=== PATIENT | female | born 1970 | race African-American/Black ===

== ENCOUNTER 2016-06-27 13:34 | Emergency (ER) | payer MEDICAID ==
[2016-06-27] MEDS ORDERED: HYDROCOD/APAP 7.5/325 IN 15ML UDCUP PO ONE (13:59)
[2016-06-27] MEDS ORDERED: DEXAMETHASONE 10 MG/ML VIAL PO ONE (13:59)
--- NOTE | 2016-06-27 14:00 | EDPHY ---
H & P Stated Complaint: st x 4 days Time Seen by Provider: 06/27/16 13:51 HPI/ROS: CHIEF COMPLAINT: Sore throat, sinus drainage HISTORY OF PRESENT ILLNESS: This is a 45-year-old female presenting to the emergency department complaining of sore throat and sinus pain with drainage which is now become green and yellow x5 days, intermittent cough x4 days patient states more likely due to the sinus drainage. Intermittent chills, patient states she has not taken anything [id number], now over the past 1- 2 days having body aches with intermittent headache from cough. REVIEW OF SYSTEMS: Constitutional: No fever. chills. Body aches fatigue Eyes: No discharge. ENT: sore throat. Sinus pain with drainage Cardiovascular: No chest pain, no palpitations. Respiratory: Intermittent nonproductive cough, no shortness of breath. Gastrointestinal: No abdominal pain, no vomiting. Genitourinary: No hematuria. Musculoskeletal: No back pain. Skin: No rashes. Neurological: Intermittent headache. Source: Patient - Personal History LMP (Females 10-55): Unknown Current Tetanus/Diphtheria Vaccine: Unsure - Medical/Surgical History Hx Asthma: No Hx Chronic Respiratory Disease: No Hx Diabetes: No Hx Cardiac Disease: No Hx Renal Disease: No Hx Cirrhosis: No Hx Alcoholism: No Hx HIV/AIDS: No Hx Splenectomy or Spleen Trauma: No Other PMH: denies - Social History Smoking Status: Current every day smoker - Physical Exam Exam: General Appearance: Alert, no distress. HEENT: Normocephalic atraumatic. Pupils equal round no pallor or injection. TMs bilateral non serous middle ear effusion no erythema. Mucous membranes moist. Nasal mucosa erythemic edema tender on exam. Maxillary sinuses tender on palpation. Tonsillar exudate, erythema and hypertrophy. Uvula midline Respiratory: There are no retractions, lungs are clear to auscultation. Cardiovascular: Regular rate and rhythm. Gastrointestinal: Abdomen is soft and nontender, no masses, bowel sounds normal. Neurological: No focal deficits Skin: Warm and dry, no rashes. Musculoskeletal: Neck is supple nontender. Cervical lymphadenopathy tender on palpation Extremities: symmetrical, full range of motion. Psychiatric: Patient is oriented X 3, there is no agitation. Constitutional: Initial Vital Signs Temperature (C) 36.6 C 06/27/16 13:38 Heart Rate 95 06/27/16 13:38 Respiratory Rate 18 06/27/16 13:38 Blood Pressure 111/79 06/27/16 13:38 O2 Sat (%) 97 06/27/16 13:38 O2 Delivery Mode Room Air Allergies/Adverse Reactions: No Known Allergies Allergy (Unverified 06/27/16 13:38) Home Medications: Medication Instructions Recorded Azithromycin [Zithromax] 250 mg PO DAILY #6 tab 06/27/16 Medical Decision Making ED Course/Re-evaluation: Discussed the plan of care: Rapid strep, Decadron, liquid Hycet ordered Discussed negative strep results, patient tolerating p.o. intake air, reports feeling a little bit better. Discharge home---> stable, discussed discharge instructions Differential Diagnosis: Other differential diagnosis considered but not limited to strep, otitis media and influenza - Data Points Laboratory Results: 06/27/16 06/27/16 Unknown 14:20 Group A Strep Screen NEGATIVE (NEGATIVE) Group A Strep DNA Pending Medications Given: Discontinued Medications Hydrocodone Bitart/Acetaminophen (Hycet Oral Liquid) 15 ml PO EDNOW ONE Stop: 06/27/16 14:00 Last Admin: 06/27/16 14:22 Dose: 15 ml Azithromycin (Zithromax) 500 mg PO EDNOW ONE PRN Reason: Protocol Stop: 06/27/16 15:23 Last Admin: 06/27/16 15:24 Dose: 500 mg Dexamethasone (Decadron Injection) 10 mg PO EDNOW ONE Stop: 06/27/16 14:00 Last Admin: 06/27/16 14:22 Dose: 10 mg Departure - Departure Disposition: Home, Routine, Self-Care Clinical Impression: Acute upper respiratory infection Acute pharyngitis Qualifiers: Pharyngitis/tonsillitis etiology: other specified organisms Qualified Code(s): J02.8 - Acute pharyngitis due to other specified organisms Condition: Good Instructions: Sinusitis (ED), Upper Respiratory Infection (ED) Additional Instructions: Discussed discharge instructions the patient 1. rest, increase fluid intake 2. Take medication as prescribed 3. Ibuprofen 600 mg every 6-8 hours, and/or Tylenol 500-1000mg every 6 hours 4. Gargle with warm salt water, hot tea lemon and honey 5. Flonase 1-2 sprays in each nostril, nasal washes Referrals: NONE *PRIMARY CARE P,. [Primary Care Provider] - As per Instructions [facility],. [Clinic] - As per Instructions Prescriptions: Azithromycin [Zithromax] 250 mg PO DAILY #6 tab
[2016-06-27] MEDS ORDERED: AZITHROMYCIN 250 MG TAB PO ONE (15:22)
[2016-06-27] MEDS ORDERED: IBUPROFEN 600 MG TAB PO ONE (15:38)
[2016-06-27 15:55] VITALS: BP 112/71; PULSE 71; RESP 16; TEMP 98.2; O2SAT 95
== END 2016-06-27 15:55 | disposition home or self-care (01) ==
DX: J06.9 Acute upper respiratory infection, unspecified (principal); F17.200 Nicotine dependence, unspecified, uncomplicated

== ENCOUNTER 2017-01-26 14:15 | Inpatient (IN) | payer MEDICAID ==
[2017-01-30] MEDS ORDERED: LR 1,000 ML IV ONE (10:34)
--- NOTE | 2017-01-30 11:52 | PDHPUP ---
History & Physical Update H&P update statement: This history and physical update is based on an assessment of the patient which was completed after admission or registration (within 24 hours), but prior to the surgery/procedure. H&P update: H&P reviewed & patient examined, no change in patient's condition since H&P completed
[2017-01-30] MEDS ORDERED: BUPIVACAINE/EPI 0.5% 30 ML SDV ONE (12:15)
[2017-01-30] MEDS ORDERED: MIDAZOLAM 2 MG/2 ML VIAL IVP ONE (13:38)
--- NOTE | 2017-01-30 13:38 | PDANEPAE ---
ANE History of Present Illness 46 yo for lap ventral hernia repair ANE Past Medical History - Cardiovascular History Hx Hypertension: No Hx Arrhythmias: No Hx Chest Pain: No Hx Coronary Artery / Peripheral Vascular Disease: No Hx CHF / Valvular Disease: No Hx Palpitations: No - Pulmonary History Hx COPD: No Hx Asthma/Reactive Airway Disease: No Hx Recent Upper Respiratory Infection: No Hx Oxygen in Use at Home: No Hx Sleep Apnea: No Sleep Apnea Screening Result - Last Documented: Negative - Neurologic History Hx Cerebrovascular Accident: No Hx Seizures: No Hx Dementia: No - Endocrine History Hx Diabetes: No - Renal History Hx Renal Disorders: No - Liver History Hx Hepatic Disorders: No - Neurological & Psychiatric Hx Hx Neurological and Psychiatric Disorders: No - Cancer History Hx Cancer: No - Congenital Disorder History Hx Congenital Disorders: No - GI History Hx Gastrointestinal Disorders: No - Other Health History Other Health History: JOSE FOOT NEUROPATHY - Chronic Pain History Chronic Pain: Yes (VENTRAL HERNIA) - Surgical History Prior Surgeries: REMVL LT BREAST CYST. DX LAP 2013 ANE Review of Systems Review of Systems: - Exercise capacity METS (RN): 4 METS ANE Patient History - Allergies Allergies/Adverse Reactions: hydrocodone [From Vicodin] Allergy (Verified 01/26/17 10:07) Itching - Home Medications Home medications: home medication list seen and reviewed Home Medications: Acetaminophen [Tylenol 325mg (*)] 325 mg PO DAILY PRN 01/26/17 [Last Taken 01/29] Gabapentin [Neurontin 300 MG (*)] 300 mg PO HS 01/26/17 [Last Taken Unknown] Gabapentin [Neurontin 300 MG (*)] 600 mg PO TID 01/26/17 [Last Taken 01/29/17] - NPO status NPO Since - Liquids (Date): 01/29/17 NPO Since - Liquids (Time): 21:30 NPO Since - Solids (Date): 01/30/17 NPO Since - Solids (Time): 08:30 - Anes Hx Anes Hx: no prior problems - Smoking Hx Smoking Status: Heavy smoker ANE Labs/Vital Signs - Vital Signs Blood Pressure: 127/83 Heart Rate: 80 Respiratory Rate: 16 O2 Sat (%): 97 Height: 5 ft 4 in Weight: 72.575 kg ANE Physical Exam - Airway Neck exam: FROM Mallampati Score: Class 2 - Pulmonary Pulmonary: no respiratory distress - Cardiovascular Cardiovascular: regular rate and rhythym - ASA Status ASA Status: II ANE Anesthesia Plan Anesthesia Plan: general endotracheal anesthesia
[2017-01-30] MEDS ORDERED: MIDAZOLAM 2 MG/2 ML VIAL ONE (13:40)
[2017-01-30] MEDS ORDERED: fentaNYL 100 MCG/2 ML INJ ONE ×3 (13:51→15:16)
[2017-01-30] MEDS ORDERED: PROPOFOL/EMULSION 500 MG/50 ML BOTTLE IV ONE (13:51)
[2017-01-30] MEDS ORDERED: KETOROLAC 30 MG/1 ML SDV ONE (14:14)
[2017-01-30] MEDS ORDERED: ROCURONIUM 50 MG/5 ML VIAL ONE (14:14)
[2017-01-30] MEDS ORDERED: ONDANSETRON 4 MG/2 ML VIAL ONE (14:14)
[2017-01-30] MEDS ORDERED: NALOXONE HCL 0.4 MG/ML INJ IVP PRN (14:54)
[2017-01-30] MEDS ORDERED: ONDANSETRON 4 MG/2 ML VIAL IVP PRN ×2 (14:54→16:27)
[2017-01-30] MEDS ORDERED: SUGAMMADEX SODIUM 200 MG/2 ML VIAL IVP ONE (14:54)
[2017-01-30] MEDS: fentaNYL 100 MCG/2 ML INJ IVP PRN ×2 (15:17→15:30)
--- NOTE | 2017-01-30 15:18 | POSTANESTH ---
Post Anesthetic Evaluation Cardiovascular Status: Normal, Stable Respiratory Status: Normal, Stable Level of Consciousness/Mental Status: Can Participate in Eval Pain Control: Adequate, Prn Tx Ordered Nausea/Vomiting Control: Adequate, Prn Tx Ordered Complications Possibly Related to Anesthesia: None Noted
[2017-01-30] MEDS ORDERED: HYDROmorphONE/DILAUDID 1 MG/ML INJ ONE (15:46)
[2017-01-30] MEDS: HYDROmorphONE/DILAUDID 1 MG/ML INJ IVP PRN ×2 (15:47→16:30)
--- NOTE | 2017-01-30 16:26 | POSTOPPROG ---
Post Op Note Date of Operation: 01/30/17 Surgeon: Jones Peterson Anesthesiologist: Fabiano Lorenzana Anesthesia: GET(General Endotracheal) Pre-op Diagnosis: Incarcerated Ventral Hernia Post-op Diagnosis: Same Procedure: Lap incarcercerated ventral hernia repair, rt flank excision Findings: incis umby and falciform ligament public safety officer incarc fat Inf/Abcess present in the surg proc area at time of surgery?: No EBL: Minimal Specimen(s): lipoma
[2017-01-30] MEDS ORDERED: HYDROCODONE/APAP 5/325 TAB PO PRN (16:27)
[2017-01-30] MEDS ORDERED: ZOLPIDEM TARTRATE 5 MG TAB PO PRN (16:27)
[2017-01-30] MEDS ORDERED: ACETAMINOPHEN 325 MG TAB PO PRN (16:28)
[2017-01-30] MEDS: KETOROLAC 15 MG/1 ML SDV IVP SCH ×2 (17:34→23:34)
[2017-01-30] MEDS: oxyCODONE IR 15 MG TAB PO PRN ×2 (17:34→21:39)
--- NOTE | 2017-01-30 17:52 | SOAPPROG ---
SOAP Progress Note Assessment/Plan: Assessment:postop check - doing well. pain controlled. no issues. ambulate. sw eval am. Plan: 01/30/17 17:51 Objective: Vital Signs Temp Pulse Resp BP Pulse Ox 36.3 C 82 20 131/84 H 98 01/30/17 17:06 01/30/17 17:06 01/30/17 17:06 01/30/17 17:06 01/30/17 17:06 01/29/17 01/30/17 01/31/17 05:59 05:59 05:59 Intake Total 1700 Output Total 20 Balance 1680 ICD10 Worksheet Patient Problems: Problems Problem Status Onset Ventral hernia Acute - ICD10 Problem Qualifiers (1) Ventral hernia
--- NOTE | 2017-01-30 18:25 | GOP ---
[f rep st] OPERATIVE REPORT DATE OF OPERATION: 01/30/2017 SURGEON: Jones Peterson MD ANESTHESIA: General. ANESTHESIOLOGIST: Ruby Lorenzana MD PREOPERATIVE DIAGNOSIS: 1. Incarcerated ventral hernia. 2. Right flank soft-tissue mass. POSTOPERATIVE DIAGNOSIS: 1. Incarcerated ventral hernia. 2. Right flank soft-tissue mass. PROCEDURE PERFORMED: 1. Laparoscopic repair of incarcerated incisional and ventral hernia with 10 inch x 15 inch Symbotex mesh. 2. Excision of right flank mass. FINDINGS: See below. INDICATIONS: 46-year-old female with a prior diagnostic laparoscopy. She presents with a painful, incarcerated umbilical hernia as well as incarcerated epigastric hernia. She is undergoing surgical repair at this time. She also desires excision of an enlarging, symptomatic right flank clinical lipoma. Risks and benefits were explained, including bleeding, infection, hernia recurrence, bowel injury, as well as mass, differential diagnosis and recurrence. All questions were entertained. She desires to proceed. DESCRIPTION OF PROCEDURE: General anesthesia was induced. The abdomen was pre injected with 0.5% Marcaine with epinephrine. A curvilinear supraumbilical incision was created. Umbilical stalk was intact. There was an incarcerated 1 cm defect just lateral to the umbilical stalk with omentum. The omentum was transected at its fascial expansion, allowing for the base to reduce back into the abdominal cavity. The sac was cleared back to healthy-appearing edges, and a 10 mm trocar was placed. Sitting approximately 5 cm proximal in right paramedian position was an area of falciform ligament perforation through the abdominal wall with a large portion of incarcerated subcutaneous fat. The fat was all reduced back into the abdominal cavity, disclosing a 1 cm English cheese defect. The remaining upper and lower midline appeared normal. The falciform ligament was taken down to the diaphragmatic hiatus. A 10 x 15 cm Symbotex mesh was inserted into the abdominal cavity. Using multiple absorbable tacks, both defects were covered from below. The trocars were removed under direct visualization. The umbilical defect was closed transversely with a running Vicryl suture. The wounds were closed with Monocryl suture followed by Steri- Strips. A transverse incision was created after local anesthetic infiltration in the right flank region. A 3 cm well-defined ovoid soft-tissue fatty mass was removed in its entirety and sent for permanent specimen processing. Satisfactory hemostasis was assured. The defect was closed with a running Monocryl suture, followed by Steri-Strips. The patient was taken to recovery room to awaken uneventfully. /[id number]/MODL MTDD
[2017-01-30] MEDS: GABAPENTIN 300 MG CAP PO SCH ×3 (21:40→21:43)
[2017-01-31] MEDS: oxyCODONE IR 15 MG TAB PO PRN ×3 (03:47→21:34)
[2017-01-31] MEDS: KETOROLAC 15 MG/1 ML SDV IVP SCH ×4 (05:38→23:40)
[2017-01-31] MEDS: GABAPENTIN 300 MG CAP PO SCH ×4 (07:39→21:33)
--- NOTE | 2017-01-31 09:41 | SOAPPROG ---
SOAP Progress Note Assessment/Plan: Assessment: no overnight issues. pain fair control. nausea improving. avss. up in chair. comfortable. abd dist. incis clean. approp tenderness. pod#1 s /p lap ventral hernia. not ready for discharge - needs better pain control and independence. ok to shower. ambulate. diet as able. anticipate dc tomorrow to senior care? abdelrahman evgreer today. reviewed with patient, cm, and nursing staff Plan: 01/30/17 17:51 01/31/17 09:39 Objective: Vital Signs Temp Pulse Resp BP Pulse Ox 36.6 C 81 12 107/69 92 01/31/17 07:42 01/31/17 07:42 01/31/17 07:42 01/31/17 07:42 01/31/17 07:42 01/30/17 01/31/17 02/01/17 05:59 05:59 05:59 Intake Total 2049 Output Total 2029 ICD10 Worksheet Patient Problems: Problems Problem Status Onset Ventral hernia Acute - ICD10 Problem Qualifiers (1) Ventral hernia
--- NOTE | 2017-01-31 13:26 | ASMTCASEMG ---
Living Arrangements What is your living Answers: Alone arrangement? Who do you live with? Type Of Residence What kind of residence do Answers: Homeless you live in? Discharge Plan Comments Coordination Status Comments Notes: Patient is a pleasant 46yo single female who was admitted for surgical repair of an umbilical hernia.Spoke with patient who was hoping she could get a bed with [facility] respite program. Contacted [facility] respite but they will not have any beds until February 03, 2017. Reserved the [facility] penitentiary bed for patient for tomorrow when she will be d/c'ed. Gave patient homeless packet for resources she can access. Patient is familiar with the penitentiary and has used their services in the past. Patient will most likely be ready for d/c tomorrow, 02/01/17. Date Signed: 01/31/2017 01:26 PM Electronically Signed By:Hannah Ren LCSW
[2017-02-01] MEDS: KETOROLAC 15 MG/1 ML SDV IVP SCH ×3 (05:54→18:17)
[2017-02-01] MEDS: oxyCODONE IR 15 MG TAB PO PRN ×3 (09:39→22:33)
--- NOTE | 2017-02-01 14:25 | SOAPPROG ---
SOAP Progress Note Assessment/Plan: Assessment/Plan: POD#2 s/p lap ventral hernia repair Somnolent Pain with ambulation Not completely independent today per RN RRR CTA incisions c/d mildly tender to palpation. no erythema. Not quite ready for d/c to [facility] Will continue to wean pain meds anticipate d/c in am12/02/01/17 14:16 Objective: Vital Signs Temp Pulse Resp BP Pulse Ox 36.7 C 101 H 16 137/73 H 90 L 02/01/17 11:11 02/01/17 11:11 02/01/17 11:11 02/01/17 11:11 02/01/17 11:11 01/31/17 02/01/17 02/02/17 05:59 05:59 05:59 Intake Total 2049 Output Total 2029 ICD10 Worksheet Patient Problems: Problems Problem Status Onset Ventral hernia Acute
--- NOTE | 2017-02-01 15:20 | ASMTCMCOM ---
CM Note CM Note Notes: Spoke with Dr. Zelaya who states patient is going to need 1 more night in the hospital. Sent an email to the detention to cancel tonight's reservation and move it to tomorrow. Patient was also provided with clothes, boots and a bus pass to get her to the detention or a warming center in the daytime until the detention opens. CM is available should additional needs arise. Date Signed: 02/01/2017 03:19 PM Electronically Signed By:Hannah Ren LCSW
[2017-02-01] MEDS: GABAPENTIN 300 MG CAP PO SCH ×3 (15:52→21:54)
[2017-02-01 22:14] VITALS: RESP 16
[2017-02-02 04:46] VITALS: TEMP 98.1
[2017-02-02] MEDS: KETOROLAC 15 MG/1 ML SDV IVP SCH ×2 (05:15)
[2017-02-02] MEDS: oxyCODONE IR 15 MG TAB PO PRN ×2 (06:04→10:28)
[2017-02-02 07:51] VITALS: BP 126/73; PULSE 91; O2SAT 94
[2017-02-02] MEDS ORDERED: POLYETHYLENE GLYCOL 3350 17 GM PKT PO PRN (09:08)
[2017-02-02] MEDS ORDERED: BISACODYL 10 MG SUPP PR PRN (09:08)
[2017-02-02] MEDS ORDERED: MAGNESIUM HYDROXIDE 30 ML UDCUP PO PRN (09:08)
[2017-02-02] MEDS ORDERED: LACTULOSE 20 GM/30 ML UDCUP PO PRN (09:08)
[2017-02-02] MEDS: GABAPENTIN 300 MG CAP PO SCH (12:16)
--- NOTE | 2017-02-02 19:04 | ASDISCHSUM ---
Discharge Information Plan Status: Medically Cleared to Leave:02/01/2017 Discharge Date:02/02/2017 02:00 PM CM D/C Disposition:Home, Routine, Self-Care ADT D/C Disposition:Home, Routine, Self-Care Projected Discharge Date:02/02/2017 12:00 AM Transportation at D/C: Discharge Delay Reason: Follow-Up Date:02/02/2017 12:00 AM Discharge Slot: Final Diagnosis: Placement Information Patient Contact Information Contact Name:CARLOS Relationship:Father Address: Work Phone: City: [facility] Phone: State/Zip Code: Email: Financial Information Financial Class: Primary Plan Desc:[employer] [place] Primary Plan Number:[id number] Secondary Plan Desc: Secondary Plan Number: Assessment Information [facility] Initial CM Assessment Living Arrangements What is your living Answers: Alone arrangement? Who do you live with? Type Of Residence What kind of residence do Answers: Homeless you live in? Discharge Plan Comments Coordination Status Comments Notes: Patient is a pleasant 46yo single female who was admitted for surgical repair of an umbilical hernia.Spoke with patient who was hoping she could get a bed with [facility] respite program. Contacted [facility] respite but they will not have any beds until February 03, 2017. Reserved the [facility] jail bed for patient for tomorrow when she will be d/c'ed. Gave patient homeless packet for resources she can access. Patient is familiar with the jail and has used their services in the past. Patient will most likely be ready for d/c tomorrow, 02/01/17. Date Signed: 01/31/2017 01:26 PM Electronically Signed By:Hannah Ren LCSW [facility] CM Progress Note CM Note CM Note Notes: Spoke with Dr. Zelaya who states patient is going to need 1 more night in the hospital. Sent an email to the jail to cancel marisol's reservation and move it to tomorrow. Patient was also provided with clothes, boots and a bus pass to get her to the jail or a warming center in the daytime until the jail opens. CM is available should additional needs arise. Date Signed: 02/01/2017 03:19 PM Electronically Signed By:Hannah Ren LCSW Intervention Information
[2017-02-02] MEDS ORDERED: SENNOSIDES/DOCUSATE SODIUM TAB PO SCH (21:00)
== END 2017-02-02 14:00 | disposition home or self-care (01) | DRG 354 ==
LOC: F3E 01-30 10:12 → OBSVTOIN 01-31 09:37
PROVIDERS: ADMIT Surgery; ATTEND Surgery
DX: K42.0 Umbilical hernia with obstruction, without gangrene (principal); K44.0 Diaphragmatic hernia with obstruction, without gangrene; D17.5 Benign lipomatous neoplasm of intra-abdominal organs
CPT/HCPCS: 97116-GP; 97161-GP; C1781; J1170; J1885; J2250; J2405; J2704; J3010